=== PATIENT | female | born 2000 | race Caucasian/White ===

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

== ENCOUNTER 2019-02-18 17:09 | Emergency (ER) | payer OTHER ==
[2019-02-18 17:35] VITALS: RESP 16
[2019-02-18] MEDS ORDERED: KETOROLAC 30 MG/ML 1 ML VIAL IM STA (18:35)
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
[2019-02-18 19:29] VITALS: BP 122/75; PULSE 78; TEMP 97.8
== END 2019-02-18 19:31 | disposition home or self-care (01) ==
LOC: EC 17:09
DX: S06.0X0A Concussion without loss of consciousness, initial encounter (principal); W20.8XXA Other cause of strike by thrown, projected or falling object, initial encounter; Y92.69 Other specified industrial and construction area as the place of occurrence of the external cause
CPT/HCPCS: 99283; 96372; J1885

== ENCOUNTER 2019-10-15 17:45 | Emergency (ER) | payer OTHER ==
[2019-10-15 20:01] VITALS: TEMP 99.5
--- NOTE | 2019-10-15 20:07 | ED ---
Chest Pain HPI - General Chief Complaint: Chest Pain Stated Complaint: chest pain Time Seen by Provider: 10/15/19 19:33 Source: patient Mode of arrival: ambulatory Limitations: no limitations - History of Present Illness Initial Comments: Patient is a 19-year-old female with no significant past medical history presenting to emergency Department with a chief complaint of chest pain. Patient states her symptoms began about 2 days ago with gradual increase in severity. Patient reports pain when her chest is palpated and on full inspiration. States that chest pain is located mostly in the sternal region. Patient denies any shortness of breath but does report a productive cough. Chest pain is not alleviated or exacerbated and laying or standing position. Patient has no history of asthma or smoking. Patient has no family history of early cardiac related . Patient denies oral contraceptive use, prolonged periods of activity, Unilateral leg swelling, hemoptysis. She denies taking any medication to alleviate the symptoms. Denies any rhinorrhea, sore throat, headaches, otalgia. Denies night sweats fever or chills. - Related Data Allergies Allergy/AdvReac Type Severity Reaction Status Date / Time No Known Allergies Allergy Verified 02/18/19 18:49 Review of Systems ROS Statement: Those systems with pertinent positive or pertinent negative responses have been documented in the HPI. ROS Other: All systems not noted in ROS Statement are negative. EKG Findings - EKG Comments: EKG Findings:: Normal sinus rhythm, no ST changes or T-wave inversions. Ventricular rate 79, [place] interval 172, QRS , QTC 410. Past Medical History Past Medical History: No Reported History History of Any Multi-Drug Resistant Organisms: None Reported Past Surgical History: No Surgical Hx Reported Past Psychological History: No Psychological Hx Reported Smoking Status: Never smoker Past Alcohol Use History: None Reported Past Drug Use History: None Reported General Exam Limitations: no limitations General appearance: alert, in no apparent distress Head exam: Present: atraumatic, normocephalic, normal inspection Eye exam: Present: normal appearance, PERRL Pupils: Present: normal accommodation ENT exam: Present: normal exam, normal oropharynx, mucous membranes moist Neck exam: Present: normal inspection, full ROM. Absent: lymphadenopathy Respiratory exam: Present: normal lung sounds bilaterally, chest wall tenderness. Absent: respiratory distress, wheezes, rales Cardiovascular Exam: Present: regular rate, normal rhythm, normal heart sounds Extremities exam: Present: normal inspection, full ROM Back exam: Present: normal inspection, full ROM Neurological exam: Present: alert, oriented X3 Psychiatric exam: Present: normal affect, normal mood Skin exam: Present: warm, dry, intact, normal color Course Vital Signs 10/15/19 10/15/19 18:31 19:43 Temperature 98.1 F 99.5 F Pulse Rate 75 76 Respiratory 18 16 Rate Blood Pressure 113/66 123/67 O2 Sat by Pulse 99 97 Oximetry Chest Pain MDM - Differential Diagnosis Pleurisy-Other, Chest Wall Syndrome - MDM Patient is a 19-year-old female with no significant past medical history presents to the emergency department with a chief complaint of chest pain 2 days. This is a reproducible chest pain with palpation to the sternal region. Patient denies any shortness of breath or dyspnea on exertion. States the pain is not exacerbated with exertion, laying or standing position. EKG shows normal sinus rhythm with no ST elevations. Low concern for pericarditis. Vitals are stable. Patient is afebrile. Patient is perc negative. Chest x-ray is unremarkable. I suspect the patient has costal chondritis. She was advised to alternate between Tylenol and Motrin for symptomatically. She was advised to follow with primary care. Strict return parameters were thoroughly discussed with patient was understanding and agreeable. Case discussed with physician. Disposition Clinical Impression: Atypical chest pain, Costochondritis, acute Disposition: HOME SELF-CARE Condition: Stable Instructions (If sedation given, give patient instructions): Costochondritis (ED) Additional Instructions: Alternate between Tylenol and Motrin for pain control. Follow-up primary care. Return to emergency department if symptoms worsen. Is patient prescribed a controlled substance at d/c from ED?: No Referrals: Luisa Gonzales DO [Primary Care Provider] - 1-2 days Time of Disposition: 20:07
--- NOTE | 2019-10-15 20:24 | XR ---
EXAMINATION TYPE: XR chest 2V DATE OF EXAM: 10/15/2019 COMPARISON: 12/08/2017 HISTORY: Chest pain TECHNIQUE: FINDINGS: Heart and mediastinum are normal. Lungs are clear. Diaphragm is normal. Bony thorax appears normal. IMPRESSION: Normal chest. No change.
[2019-10-15 20:40] VITALS: BP 118/69; PULSE 84; RESP 17
== END 2019-10-15 20:40 | disposition home or self-care (01) ==
LOC: EC 17:45
DX: M94.0 Chondrocostal junction syndrome [Tietze] (principal)
CPT/HCPCS: 71046; 93005; 99284

== ENCOUNTER → 2020-06-09 | Outpatient (CLI) | payer OTHER ==
--- NOTE | 2020-06-09 15:58 | US ---
EXAMINATION TYPE: Transabdominal DATE OF EXAM: 06/09/2020 3:48 PM COMPARISON: NONE CLINICAL HISTORY: Z36 Confirm dates. Confirm Dates, pt has no complaints at this time EXAM PERFORMED: Transabdominal (TA) EXAM MEASUREMENTS: GESTATIONAL AGE / DATING Physician Established: Not yet established Dates by LMP: (11 weeks/5 days) EDC: 12/24/2020 Dates by First Scan: No prior Dates by Current Scan for: (11 weeks/6 days) EDC: 12/23/2020 MATERNAL ANATOMY Uterus: 12.4 x 6.3 x 8.8 cm Right Ovary: 3.3 x 2.1 x 2.3 cm Left Ovary: 2.3 x 1.4 x 2.1 cm Post CDS / Adnexa: wnl Presence of free fluid: No Presence of corpus luteal cyst: Right Ovary= 1.9 x 1.6 x 1.5 cm Presence of subchorionic bleed: No GESTATION / SURVEY CRL: 5.0 cm (11 weeks/6 days) MSD: wnl Heart Rate: 163 bpm Rhythm: Normal IUP: Viable IUP Date of LMP: 03/19/2020 Single, viable IUP/ No abnormality visualized at this time IMPRESSION: 1. Single intrauterine gestation estimated at 11 weeks 6 days gestation based on crown-rump length. C ardiac activity measures 163 bpm
== END | disposition home or self-care (01) ==
LOC: RADUSWWP 15:30
PROVIDERS: ATTEND Obstetrics & Gynecology
DX: Z36.9 Encounter for antenatal screening, unspecified (principal); Z3A.11 11 weeks gestation of pregnancy
CPT/HCPCS: 76801

== ENCOUNTER 2020-08-08 10:39 | Emergency (ER) | payer OTHER ==
[2020-08-08 11:02] VITALS: RESP 18
--- NOTE | 2020-08-08 11:20 | ED ---
General Adult HPI - General Chief complaint: GI Bleed Stated complaint: 20wks preg, vomited blood Time Seen by Provider: 08/08/20 11:10 Source: patient Mode of arrival: ambulatory Limitations: no limitations - History of Present Illness Initial comments: 19yo female who is currently 20 week presenting to the Er today for cc of blood in vomit. Pt states that she had her vitamin on an empty stomach this AM she states that 10 minutes after she had vomiting episodes for 2 mintues and the last bit she had some streaks up blood in it. Denies being all blood, denies liver disease, dark stools, denies abdominal pain, vaginal bleeding, urinary symptoms, fevers, URI symptoms or chest pain. Patient appears well nontoxic on arrival in no acute distress. No current nausea, vomiting, no additional episodes per patient. - Related Data Allergies Allergy/AdvReac Type Severity Reaction Status Date / Time No Known Allergies Allergy Verified 08/08/20 11:02 Review of Systems ROS Statement: Those systems with pertinent positive or pertinent negative responses have been documented in the HPI. ROS Other: All systems not noted in ROS Statement are negative. Past Medical History Past Medical History: No Reported History History of Any Multi-Drug Resistant Organisms: None Reported Past Surgical History: No Surgical Hx Reported Past Psychological History: No Psychological Hx Reported Smoking Status: Never smoker Past Alcohol Use History: None Reported Past Drug Use History: None Reported General Exam - General Exam Comments Initial Comments: General: The patient is awake and alert, in no distress, and does not appear acutely ill. Eye: Pupils are equal, round and reactive to light, extra-ocular movements are intact. No nystagmus. There is normal conjunctiva bilaterally. No signs of icterus. Cardiovascular: There is a regular rate and rhythm. No murmur, rub or gallop is appreciated. Respiratory: No crepitus to chest wall palpation. Lungs are clear to auscultation, respirations are non-labored, breath sounds are equal. No wheezes, stridor, rales, or rhonchi. Gastrointestinal: Soft, non-tender abdomen without masses or organomegaly noted. There is no rebound or guarding present. Musculoskeletal: Normal ROM, no tenderness. Strength 5/5. Sensation intact. Pulses equal bilaterally 2+. Neurological: A&O x 3. CN II-XII intact grossly, There are no obvious motor or sensory deficits. Coordination appears grossly intact. Speech is normal. Skin: Skin is warm and dry and no rashes or lesions are noted. Psychiatric: Cooperative, appropriate mood & affect, normal judgment. Limitations: no limitations Course Vital Signs 08/08/20 10:59 Temperature 97.5 F L Pulse Rate 73 Respiratory 18 Rate Blood Pressure 109/70 O2 Sat by Pulse 100 Oximetry Medical Decision Making - Medical Decision Making No additional episodes. pt VS WNL. appears well . abdomen soft. patient UA contaminated otherwise no obvious features. Patient glucose 86. HR 155, she will be discharged with OBGYN f/u. Patient case discussed wtih Dr clifford who is agreeable to a care plan. - Lab Data Lab Results 08/08/20 08/08/20 Range/Units 11:29 11:39 POC Glucose (mg/dL) 86 (75-99) mg/dL POC Glu Dog Walker ID Jeramy, Zoila Urine Color Yellow Urine Appearance Cloudy H (Clear) Urine pH 7.5 (5.0-8.0) Ur Specific [place] 1.013 (1.001-1.035) Urine Protein Negative (Negative) Urine Glucose (UA) Negative (Negative) Urine Ketones Negative (Negative) Urine Blood Negative (Negative) Urine Nitrite Negative (Negative) Urine Bilirubin Negative (Negative) Urine Urobilinogen <2.0 (<2.0) mg/dL Ur Leukocyte Esterase Trace H (Negative) Urine RBC 1 (0-5) /hpf Urine WBC 4 (0-5) /hpf Ur Squamous Epith Cells 23 H (0-4) /hpf Urine Bacteria Rare H (None) /hpf Urine Mucus Occasional H (None) /hpf Disposition Clinical Impression: Vomiting, Symptom of blood in vomit Disposition: HOME SELF-CARE Condition: Good Additional Instructions: Please use medication as discussed. Please follow-up with OBGYN, return for any additional episodes of blood in vomit. Please return to emergency room if the symptoms increase or worsen or for any other concerns. Is patient prescribed a controlled substance at d/c from ED?: No Referrals: Luisa Gonzales DO [Primary Care Provider] - 1-2 days Time of Disposition: 11:19
[2020-08-08 11:40] LABS: Glucose,Whole Blood 86 mg/dL (75-99)
[2020-08-08 11:49] LABS: Appearance,Urine Cloudy (Clear); Bacteria,Urine Rare /hpf; Bilirubin,Urine Negative (Negative); Blood,Urine Negative (Negative); Color,Urine Yellow; Glucose,Urine (UA) Negative (Negative); Ketones,Urine Negative (Negative); Leukocyte Esterase,Urine Trace (Negative); Mucus,Urine Occasional /hpf; Nitrite,Urine Negative (Negative); PH, Urine 7.5 (5.0-8.0); Protein,Urine Negative (Negative); RBC,Urine 1 /hpf (0-5); Specific Gravity,Urine 1.013 (1.001-1.035); Squamous Epithelial Cell,Urine 23 /hpf (0-4); Urobilinogen,Urine <2.0 mg/dL (<2.0); WBC,Urine 4 /hpf (0-5)
[2020-08-08 12:27] VITALS: BP 115/70; PULSE 76; TEMP 98
== END 2020-08-08 12:27 | disposition home or self-care (01) ==
LOC: EC 10:39
DX: O99.512 Diseases of the respiratory system complicating pregnancy, second trimester (principal); R04.2 Hemoptysis; Z3A.20 20 weeks gestation of pregnancy
CPT/HCPCS: 36415; 81001; 99284

== ENCOUNTER 2020-09-15 19:31 | Emergency (ER) | payer OTHER ==
[2020-09-15 21:05] LABS: Appearance,Urine Cloudy (Clear); Bilirubin,Urine Negative (Negative); Blood,Urine Negative (Negative); Color,Urine Yellow; Glucose,Urine (UA) Negative (Negative); Ketones,Urine Negative (Negative); Leukocyte Esterase,Urine Trace (Negative); Mucus,Urine Rare /hpf; Nitrite,Urine Negative (Negative); Protein,Urine Negative (Negative); RBC,Urine 1 /hpf (0-5); Specific Gravity,Urine 1.014 (1.001-1.035); Squamous Epithelial Cell,Urine 8 /hpf (0-4); Urobilinogen,Urine <2.0 mg/dL (<2.0); WBC,Urine 4 /hpf (0-5)
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
[2020-09-15 21:28] VITALS: RESP 18
[2020-09-15 21:35] VITALS: BP 113/67; PULSE 90; TEMP 98
== END 2020-09-15 21:32 | disposition home or self-care (01) ==
LOC: EC 19:31
DX: O9A.212 Injury, poisoning and certain other consequences of external causes complicating pregnancy, second trimester (principal); T14.90XA Injury, unspecified, initial encounter; Z3A.25 25 weeks gestation of pregnancy; Y04.0XXA Assault by unarmed brawl or fight, initial encounter
CPT/HCPCS: 81001; 99284

== ENCOUNTER 2020-11-26 15:01 | Outpatient (CLI) | payer OTHER ==
[2020-11-26 16:23] VITALS: BP 117/61; PULSE 97; RESP 16; TEMP 97.6
--- NOTE | 2020-12-01 06:28 | P.MSEPDOC ---
Presenting Problems - Arrival Data Date of Arrival on Unit: 11/26/20 Time of Arrival on Unit: 15:00 Mode of Transport: Ambulatory - Complaint OB-Reason for Admission/Chief Complaint: Decreased Movement Comment: pt presents presents to triage for concerns of not feeling baby move since 9am. States baby was very active all night. states mild stomache cramping last 30 min or so. was last at Dr Mosher's November 19. "not dialated" at that time Medical History - Information : 1 Para: 0 Term: 0 : 0 Abortions: Spontaneous or Elective: 0 Number of Living Children: 0 - Gestational Age Gestational Age by HUMBERTO (wks/days): 36 Weeks and 0 Days - History Comment: record not available for review but pt denies and history of complications. Review of Systems - Review of Systems Constitutional: No problems Breast: No problems ENT: No problems Cardiovascular: No problems Respiratory: No problems Gastrointestinal: No problems Genitourinary: No problems Musculoskeletal: No problems Neurological: No problems Skin: No problems Vital Signs - Temperature Temperature: 97.6 F Temperature Source: Oral - Pulse Right Pulse Rate: 97 Pulse Assessment Method: Automatic Cuff - Respirations Respiratory Rate: 16 Oxygen Delivery Method: Room Air - Blood Pressure Right Arm Blood Pressure: 117/61 Blood Pressure Mean: 79 Blood Pressure Source: Automatic Cuff Medical Screen Scoring (Pre) - Cervical Exam Dilation: Exam Deferred Effacement: Exam Deferred - Uterine Contractions Frequency: > or = 36 weeks =2 Duration: N/A Intensity: N/A - Maternal Vital Signs Maternal Temperature: N/A Maternal Blood Pressure: N/A Signs of Preeclampsia: N/A Maternal Respirations: N/A - Maternal Trauma Maternal Trauma: N/A - Assessment - Baby A Baseline FHR: 155 Heart Rate - NICHD Category: Category I (Normal) = 0 NST: Reactive Position: N/A Station: N/A - Total Score - Baby A Total Score - Baby A: 2 - Total Score - Baby B Total Score - Baby B: 2 - Total Score - Baby C Total Score - Baby C: 2 - Level of Risk - Baby A Level of Risk - Baby A: Low (0-5) - Level of Risk - Baby B Level of Risk - Baby B: Low (0-5) - Level of Risk - Baby C Level of Risk - Baby C: Low (0-5) - Pain Assessment Pain Scale Used: Numeric (1 - 10) Pain Intensity: 0 Pain Management Goal: 0 Physician Notification (Pre) - Physician Notified Physician Notified Date: 11/26/20 Physician Notified Time: 15:45 New Order Received: Yes - Notification Comment Comment: Notified pts reason for visit decreased movement since 9am. baby actively moving now. NST reactive. Cat 1 FHT. Pt denies pain. Appt with Dr [place] tomorrow. Discharge order received. Disposition - Disposition OB Disposition: Discharge to home Discharge Date: 11/26/20 Discharge Time: 16:00 I agree with the RN Medical Screening Exam: Yes Case reviewed; plan agreed upon as documented in EMR&OBIX.: Yes Diagnosis: DECREASED MOVEMENTS, THIRD TRIMESTER, FETUS 1 (Reactive NST/Cat 1. Pt now feeling baby move. No evidence of maternal/ compromise.)
== END 2020-11-26 16:00 | disposition home or self-care (01) ==
LOC: FBPOP 15:01
PROVIDERS: ATTEND Obstetrics & Gynecology
DX: O36.8130 Decreased fetal movements, third trimester, not applicable or unspecified (principal); Z3A.36 36 weeks gestation of pregnancy
CPT/HCPCS: 59025; G0463; 99213

== ENCOUNTER 2020-12-20 18:36 | Outpatient (CLI) | payer OTHER ==
[2020-12-20 19:42] VITALS: BP 126/69; PULSE 108; RESP 16; TEMP 97.6
--- NOTE | 2021-01-06 02:26 | P.MSEPDOC ---
Presenting Problems - Arrival Data Date of Arrival on Unit: 12/20/20 Time of Arrival on Unit: 18:36 Mode of Transport: Ambulatory - Complaint OB-Reason for Admission/Chief Complaint: Decreased Movement Comment: pt presents to triage for not feeling any movement at all today Medical History - Information : 1 Para: 0 Term: 0 : 0 Abortions: Spontaneous or Elective: 0 Number of Living Children: 0 - Gestational Age Gestational Age by HUMBERTO (wks/days): 39 Weeks and 3 Days Review of Systems - Review of Systems Constitutional: No problems Breast: No problems ENT: No problems Cardiovascular: No problems Respiratory: No problems Gastrointestinal: No problems Genitourinary: No problems Musculoskeletal: No problems Neurological: No problems Skin: No problems Vital Signs - Temperature Temperature: 97.6 F Temperature Source: Temporal Artery Scan - Pulse Right Brachial Pulse Rate: 108 Pulse Assessment Method: Automatic Cuff - Respirations Respiratory Rate: 16 Oxygen Delivery Method: Room Air O2 Sat by Pulse Oximetry: 98 - Blood Pressure Right Arm Blood Pressure: 126/69 Blood Pressure Mean: 88 Blood Pressure Source: Automatic Cuff Medical Screen Scoring (Pre) - Cervical Exam Dilation: Exam Deferred Effacement: Exam Deferred Membranes: Intact - Uterine Contractions Frequency: > 5 minutes apart = 1 Duration: > 40 seconds = 2 Intensity: N/A - Maternal Vital Signs Maternal Temperature: N/A Maternal Blood Pressure: N/A Signs of Preeclampsia: N/A Maternal Respirations: N/A - Maternal Trauma Maternal Trauma: N/A - Assessment - Baby A Baseline FHR: 145 Heart Rate - NICHD Category: Category I (Normal) = 0 NST: Reactive - Total Score - Baby A Total Score - Baby A: 3 - Total Score - Baby B Total Score - Baby B: 3 - Total Score - Baby C Total Score - Baby C: 3 - Level of Risk - Baby A Level of Risk - Baby A: Low (0-5) - Level of Risk - Baby B Level of Risk - Baby B: Low (0-5) - Level of Risk - Baby C Level of Risk - Baby C: Low (0-5) Physician Notification (Pre) - Physician Notified Physician Notified Date: 12/20/20 Physician Notified Time: 19:15 New Order Received: Yes - Notification Comment Comment: RN reported that patient was 39 3/7, , presents to triage with decreased. movement. Reactive NST, patient felt baby move four times during NST. Patients. vital signs remain stable. Catergory 1 heart tones. Patient to be discharged home. with instructions on how to do kick counts. Patient educated and verbalized. understanding. Disposition - Disposition OB Disposition: Discharge to home Discharge Date: 12/20/20 Discharge Time: 19:20 I agree with the RN Medical Screening Exam: Yes Case reviewed; plan agreed upon as documented in EMR&OBIX.: Yes Diagnosis: DECREASED MOVEMENTS, THIRD TRIMESTER, FETUS 1
== END 2020-12-20 19:20 | disposition home or self-care (01) ==
LOC: FBPOP 18:36
PROVIDERS: ATTEND Obstetrics & Gynecology
DX: O36.8130 Decreased fetal movements, third trimester, not applicable or unspecified (principal); Z3A.39 39 weeks gestation of pregnancy
CPT/HCPCS: 59025; G0463; 99213

== ENCOUNTER 2020-12-25 16:11 | Outpatient (CLI) | payer OTHER ==
[2020-12-25 16:53] VITALS: BP 125/69; PULSE 94; RESP 18; TEMP 97.9
--- NOTE | 2020-12-26 08:31 | P.MSEPDOC ---
Presenting Problems - Arrival Data Date of Arrival on Unit: 12/25/20 Time of Arrival on Unit: 16:10 Mode of Transport: Ambulatory - Complaint OB-Reason for Admission/Chief Complaint: Rule Out SROM Comment: ? SROM at 1800 last night. Medical History - Information : 1 Para: 0 Term: 0 : 0 Abortions: Spontaneous or Elective: 0 Number of Living Children: 0 - Gestational Age Gestational Age by HUMBERTO (wks/days): 40 Weeks and 1 Days - History Comment: Post dates Review of Systems - Review of Systems Constitutional: No problems Breast: No problems ENT: No problems Cardiovascular: No problems Respiratory: No problems Gastrointestinal: No problems Genitourinary: No problems Musculoskeletal: No problems Neurological: No problems Skin: No problems Vital Signs - Temperature Temperature: 97.9 F Temperature Source: Oral - Pulse Right Sitting Brachial Pulse Rate: 94 Pulse Assessment Method: Automatic Cuff - Respirations Respiratory Rate: 18 Oxygen Delivery Method: Room Air O2 Sat by Pulse Oximetry: 97 - Blood Pressure Right Arm Sitting Blood Pressure: 125/69 Blood Pressure Mean: 87 Blood Pressure Source: Automatic Cuff Medical Screen Scoring (Pre) - Cervical Exam Dilation: 1-3 cm = 1 Effacement: More than 50% = 2 Membranes: Intact - Uterine Contractions Frequency: > 5 minutes apart = 1 Duration: > 40 seconds = 2 Intensity: N/A - Maternal Vital Signs Maternal Temperature: N/A Maternal Blood Pressure: N/A Signs of Preeclampsia: N/A Maternal Respirations: N/A - Maternal Trauma Maternal Trauma: N/A - Assessment - Baby A Baseline FHR: 135 Heart Rate - NICHD Category: Category I (Normal) = 0 NST: Reactive Position: N/A - Total Score - Baby A Total Score - Baby A: 6 - Total Score - Baby B Total Score - Baby B: 6 - Total Score - Baby C Total Score - Baby C: 6 - Level of Risk - Baby A Level of Risk - Baby A: Medium (6-9) - Level of Risk - Baby B Level of Risk - Baby B: Medium (6-9) - Level of Risk - Baby C Level of Risk - Baby C: Medium (6-9) Physician Notification (Pre) - Physician Notified Physician Notified Date: 12/25/20 Physician Notified Time: 16:45 New Order Received: Yes - Notification Comment Comment: Mt home. Pt to call for OB appt and NST on Monday. Pt verbalized understanding. Disposition - Disposition OB Disposition: Discharge to home Discharge Date: 12/25/20 Discharge Time: 16:50 I agree with the RN Medical Screening Exam: Yes Case reviewed; plan agreed upon as documented in EMR&OBIX.: Yes Diagnosis: FALSE LABOR AT OR AFTER 37 COMPLETED WEEKS OF GESTATION (Patient presented to labor and delivery with complaints of leaking for over 1 day. Examination showed no evidence of rupture membranes and cervix was nondilated significantly without regular contractions. heart tones are category 1. Patient instructed follow-up with Dr. Mosher on Monday for a nonstress test an obstetrical visit to discuss delivery plans if undelivered.)
== END 2020-12-25 16:54 | disposition home or self-care (01) ==
LOC: FBPOP 16:11
PROVIDERS: ATTEND Obstetrics & Gynecology
DX: O47.1 False labor at or after 37 completed weeks of gestation (principal); Z3A.40 40 weeks gestation of pregnancy
CPT/HCPCS: 59025; 84112; G0463; 99213

== ENCOUNTER 2020-12-30 05:50 | Inpatient (IN) | payer OTHER ==
[2020-12-30] MEDS ORDERED: LIDOCAINE 1% (10MG/ML) FOR IV START INTRADERMA PRN (06:03)
[2020-12-30] MEDS ORDERED: CARBOPROST TROMETHAMINE 250 MCG/ML 1 ML AMP IM PRN (06:04)
[2020-12-30] MEDS ORDERED: OXYTOCIN 10 UNIT/ML 1 ML VIAL IM PRN (06:04)
[2020-12-30] MEDS ORDERED: METHYLERGONOVINE 0.2 MG/ML 1 ML AMP IM PRN (06:04)
[2020-12-30] MEDS ORDERED: TERBUTALINE 1 MG/ML VIAL SQ PRN (06:04)
[2020-12-30] MEDS ORDERED: AMPICILLIN 2,000 MG in SODIUM CHLORIDE 0.9% 100 ML IVPB STA (06:04)
[2020-12-30] MEDS ORDERED: OXYTOCIN 30 UNITS/500 ML NS 30 UNIT in SALINE 1 500ML.BAG IV SCH (06:15)
[2020-12-30] MEDS: LACTATED RINGERS 1,000 ML IV SCH ×5 (06:15→21:12)
[2020-12-30 06:21] LABS: Basophils % (A) 0 %; Eosinophils # (A) 0.2 k/uL (0-0.7); Eosinophils % (A) 2 %; HGB 12.1 gm/dL (11.4-16.0); Lymphocytes # (A) 2.1 k/uL (1.0-4.8); Lymphocytes % (A) 21 %; MCH 27.6 pg (25.0-35.0); MCHC 35.7 g/dL (31.0-37.0); MCV 77.3 fL (80.0-100.0); Mean Platelet Volume 9.3; Monocytes # (A) 0.4 k/uL (0-1.0); Monocytes % (A) 4 %; Neutrophils # (A) 7.4 k/uL (1.3-7.7); Neutrophils % (A) 72 %; Platelet Count 262 k/uL (150-450); RDW 13.8 % (11.5-15.5); WBC 10.3 k/uL (3.8-10.6)
--- NOTE | 2020-12-30 08:04 | P.HPOB ---
History of Present Illness H&P Date: 12/30/20 Chief Complaint: Induction of Labor 20 year old presented at 40 weeks and 6 days for induction of labor. Her cervix is 1-2 cm dilated, 70% effaced, and -2 station. She is león irregularly. heart tones are 135 with moderate variability and reactive. Review of Systems All systems: negative Constitutional: Denies chills, Denies fever Eyes: denies blurred vision, denies pain Ears, nose, mouth and throat: Denies headache, Denies sore throat Cardiovascular: Denies chest pain, Denies shortness of breath Respiratory: Denies cough Gastrointestinal: Denies abdominal pain, Denies diarrhea, Denies nausea, Denies vomiting Genitourinary: Denies dysuria, Denies hematuria Musculoskeletal: Denies myalgias Integumentary: Denies pruritus, Denies rash Neurological: Denies numbness, Denies weakness Psychiatric: Denies anxiety, Denies depression Endocrine: Denies fatigue, Denies weight change Past Medical History Past Medical History: No Reported History History of Any Multi-Drug Resistant Organisms: None Reported Past Surgical History: No Surgical Hx Reported Past Anesthesia/Blood Transfusion Reactions: No Reported Reaction Past Psychological History: No Psychological Hx Reported Smoking Status: Never smoker Past Alcohol Use History: None Reported Past Drug Use History: None Reported - Past Family History Mother History Unknown: Yes Family Medical History: Hypertension Medications and Allergies Home Medications Medication Instructions Recorded Confirmed Type Pnv No.95/Ferrous Fum/Folic AC 1 tab PO DAILY 12/20/20 12/30/20 History [ Multivitamin Tablet] Allergies Allergy/AdvReac Type Severity Reaction Status Date / Time No Known Allergies Allergy Verified 12/20/20 18:48 Exam Osteopathic Statement: *. No significant issues noted on an osteopathic structural exam other than those noted in the History and Physical/Consult. Vital Signs Temp Pulse Resp BP Pulse Ox 12/30/20 06:02 96.7 F L 83 16 128/75 98 Intake and Output 12/29/20 12/30/20 12/30/20 22:59 06:59 14:59 Other: Weight 102.512 kg Heart: Regular rate and rhythm Lungs: Clear to auscultation bilaterally Abdomen: Soft, nontender Extremities: Negative Homans sign Results Result Diagrams: 12/30/20 06:05 Abnormal Lab Results - Last 24 Hours (Table) 12/30/20 Range/Units 06:05 MCV 77.3 L (80.0-100.0) fL Assessment and Plan (1) Encounter for induction of labor Current Visit: Yes Status: Acute Code(s): Z34.90 - ENCNTR FOR SUPRVSN OF NORMAL , UNSP, UNSP TRIMESTER SNOMED Code(s): 137953345 (2) Positive GBS test Current Visit: Yes Status: Acute Code(s): B95.1 - STREPTOCOCCUS, GROUP B, CAUSING DISEASES CLASSD [facility] SNOMED Code(s): 240392766 Plan: 1. Admit to family place 2. Ampicillin for GBS prophylaxis 3. Amniotomy and Pitocin for induction of labor 4. Anticipate normal vaginal delivery
[2020-12-30] MEDS: AMPICILLIN 1,000 MG in SODIUM CHLORIDE 0.9% 50 ML IVPB SCH ×4 (10:20→22:14)
[2020-12-30] MEDS: BUTORPHANOL 1 MG/ML 1 ML VIAL IV PRN ×3 (12:17→18:15)
[2020-12-30] MEDS ORDERED: ROPIVACAINE 5MG/ML 20ML VIAL ONE (20:17)
[2020-12-30] MEDS ORDERED: SODIUM CHLORIDE 0.9% 100 ML BAG ONE (20:17)
[2020-12-30] MEDS ORDERED: fentaNYL (PF) 50 MCG/ML 5 ML AMP ONE (20:17)
[2020-12-31] MEDS: AMPICILLIN 1,000 MG in SODIUM CHLORIDE 0.9% 50 ML IVPB SCH (02:13)
[2020-12-31] MEDS ORDERED: CITRIC ACID-SODIUM CITRATE 15 ML CUP PO ONE (03:48)
[2020-12-31] MEDS ORDERED: NALBUPHINE 10 MG/ML (1 ML AMP) ONE (04:14)
[2020-12-31] MEDS ORDERED: OXYTOCIN 10 UNIT/ML 1 ML VIAL ONE (04:14)
[2020-12-31] MEDS ORDERED: MORPHINE SULFATE (PF) 0.3 MG/0.3 ML SYR ONE (04:14)
[2020-12-31] MEDS ORDERED: LANOLIN CREAM 5 GM TUBE TOPICAL PRN (05:07)
[2020-12-31] MEDS ORDERED: METOCLOPRAMIDE 5 MG/ML 2 ML VIAL IVP PRN (05:07)
[2020-12-31] MEDS ORDERED: ZOLPIDEM 5 MG TAB PO PRN (05:07)
[2020-12-31] MEDS ORDERED: diphenhydrAMINE 50 MG/ML 1 ML VIAL IVP PRN ×2 (05:07)
[2020-12-31] MEDS ORDERED: SIMETHICONE 80 MG CHEWABLE PO PRN (05:07)
[2020-12-31] MEDS ORDERED: ONDANSETRON 4 MG/2 ML VIAL IVP PRN (05:07)
[2020-12-31] MEDS ORDERED: NALOXONE 0.4 MG/ML 1 ML VIAL IV PRN (05:07)
[2020-12-31] MEDS ORDERED: diphenhydrAMINE 25 MG CAP PO PRN (05:07)
[2020-12-31] MEDS ORDERED: diphenhydrAMINE 50 MG CAP PO PRN (05:07)
--- NOTE | 2020-12-31 05:12 | P.OP ---
Date of Procedure: 12/31/20 Preoperative Diagnosis: 1. at 41 weeks 2. failure to progress Postoperative Diagnosis: 1. at 41 weeks 2. failure to progress Procedure(s) Performed: Primary low transverse Anesthesia: epidural Surgeon: Jessica Mosher [employer] Supervisor #1: Viktoria Wood Estimated Blood Loss (ml): 600 IV fluids (ml): 200 Urine output (ml): 200 Pathology: none sent Condition: stable Disposition: floor Indications for Procedure: Patient presented for induction of labor at 40 weeks and 6 days. Her cervix was 1-2 cm dilated, 70% effaced, and -2 station. She was león irregularly. heart tones 135 with moderate variability and reactive. Pitocin was started and amniotomy was performed patient did make it to 3 cm but stayed there for several hours despite adequate contractions. Informed consent was obtained and section was called. Operative Findings: Viable female, Apgars 9, 9, weight 9 lbs. 9 oz. Normal Uterus, tubes, and ovaries. Description of Procedure: Patient was taken to the operating room where epidural anesthesia was found be adequate. She was prepped and draped in normal sterile fashion in dorsal supine position with a leftward tilt. Pfannenstiel skin incision was made the scalpel and carried through to the underlying layer of fascia with the scalpel. Fascia was incised in midline and carried bilaterally with the Hussein scissors. The superior aspect of the fascial incision was grasped with Alvin clamps elevated and the underlying rectus muscles dissected off with the Hussein's. Attention was then turned to inferior aspect of same incision which in a similar fashion was grasped tented up and the underlying rectus muscles dissected off with the Hussein's. The rectus muscles were the midline and the peritoneum was identified tented up and entered sharply with the scalpel. The incision was extended superiorly and inferiorly with good visualization of the bladder. The bladder blade was inserted and the vesicouterine peritoneum was incised the Metzenbaums then carried bilaterally and bladder flap created digitally. A low transverse incision was then made on the uterus with the scalpel. This was carried bilaterally and digital manner. Infant's head delivered atraumatically, nose and mouth bulb suctioned, cord clamped and cut, handed off to waiting nurses. Apgars 9,9, weight 9 lbs. 9 oz. Placenta delivered manually, intact with three-vessel cord. The uterus is exteriorized and cleared of all clots and debris. The uterine incision was closed with 0 Vicryl in a running locked fashion. Second layer of the same sutures used in imbricating fashion to obtain excellent hemostasis. The fascia was reapproximated using 0 Vicryl in a running fashion. The subcutaneous tissues closed with 3-0 Vicryl running fashion. The skin was closed reginaldo. Patient tolerated the procedure well, sponge and instrument counts were correct times 2 and she was taken to the recovery room in stable condition.
[2020-12-31] MEDS ORDERED: OXYTOCIN 30 UNITS/500 ML NS 30 UNIT in SALINE 1 500ML.BAG IV SCH (05:15)
[2020-12-31] MEDS: KETOROLAC 15 MG/ML 1 ML VIAL IVP SCH ×3 (06:15→17:53)
--- NOTE | 2020-12-31 06:35 | P.PN ---
Progress Note - Text Progress Note Date: 12/31/20 Patient w/o complaints. Ambulating w/o paresthesia or weakness. Denies headache or pruritis. Pain controlled. Spinal site c/d. A/P POD#1 s/p c-sec with spinal duramorph - doing well
[2020-12-31] MEDS: ACETAMINOPHEN TAB 500 MG TAB PO SCH ×3 (09:08→21:29)
[2020-12-31] MEDS: SENNOSIDES-DOCUSATE SODIUM 1 EACH TAB PO SCH ×2 (09:08→19:38)
[2020-12-31] MEDS: LACTATED RINGERS 1,000 ML IV SCH ×3 (09:51→18:52)
[2020-12-31] MEDS: IBUPROFEN 600 MG TAB PO SCH (18:50)
[2021-01-01] MEDS: IBUPROFEN 600 MG TAB PO SCH ×3 (05:23→22:33)
[2021-01-01] MEDS ORDERED: diphenhydrAMINE 25 MG CAP PO PRN (08:03)
[2021-01-01] MEDS ORDERED: METOCLOPRAMIDE 5 MG/ML 2 ML VIAL IVP PRN (08:03)
[2021-01-01] MEDS ORDERED: ZOLPIDEM 5 MG TAB PO PRN (08:03)
[2021-01-01] MEDS ORDERED: ONDANSETRON 4 MG/2 ML VIAL IVP PRN (08:03)
[2021-01-01] MEDS ORDERED: diphenhydrAMINE 50 MG/ML 1 ML VIAL IVP PRN ×2 (08:03)
[2021-01-01] MEDS ORDERED: SIMETHICONE 80 MG CHEWABLE PO PRN (08:03)
[2021-01-01] MEDS ORDERED: NALOXONE 0.4 MG/ML 1 ML VIAL IV PRN (08:03)
[2021-01-01] MEDS ORDERED: diphenhydrAMINE 50 MG CAP PO PRN (08:03)
[2021-01-01] MEDS: SENNOSIDES-DOCUSATE SODIUM 1 EACH TAB PO SCH ×2 (09:25→19:13)
--- NOTE | 2021-01-01 09:53 | P.PN ---
Progress Note - Text Progress Note Date: 01/01/21 Postoperative day 1 status post section under epidural anesthesia, and epidural morphine given for postoperative analgesia, patient doing well, there is no anesthesia related complications, Patient had no headache, vital signs stable , Assessment and plan= postop day 1 status post , doing well there is no anesthesia related complication.
[2021-01-01] MEDS ORDERED: ACETAMINOPHEN TAB 500 MG TAB PO SCH (10:00)
[2021-01-01 10:18] LABS: Basophils % (A) 0 %; Eosinophils # (A) 0.1 k/uL (0-0.7); Eosinophils % (A) 1 %; HCT 25.5 % (34.0-46.0); Lymphocytes # (A) 1.5 k/uL (1.0-4.8); Lymphocytes % (A) 13 %; MCH 27.4 pg (25.0-35.0); MCHC 34.7 g/dL (31.0-37.0); Mean Platelet Volume 9.3; Monocytes # (A) 0.4 k/uL (0-1.0); Monocytes % (A) 3 %; Neutrophils # (A) 9.3 k/uL (1.3-7.7); Neutrophils % (A) 81 %; Platelet Count 222 k/uL (150-450); RBC 3.23 m/uL (3.80-5.40); RDW 14.2 % (11.5-15.5); WBC 11.4 k/uL (3.8-10.6)
[2021-01-01 10:19] LABS: HGB 8.9 gm/dL (11.4-16.0)
[2021-01-01] MEDS ORDERED: IBUPROFEN 600 MG TAB PO SCH (13:00)
[2021-01-01] MEDS: ACETAMINOPHEN TAB 500 MG TAB PO SCH (20:01)
[2021-01-02] MEDS: ACETAMINOPHEN TAB 500 MG TAB PO SCH ×3 (02:34→15:10)
[2021-01-02] MEDS: IBUPROFEN 600 MG TAB PO SCH ×2 (03:49→10:37)
--- NOTE | 2021-01-02 07:06 | P.PNOBGPC ---
Subjective - Subjective Principal diagnosis: Status post primary low transverse postop day #1 Interval history: Patient seen and examined. Denies nausea, vomiting, chest pain, shortness of breath or any calf pain. Patient reports: Reports appetite normal, Reports voiding normally, Reports pain well controlled, Reports ambulating normally : doing well Objective - Vital Signs Latest vital signs: Vital Signs Temp Pulse Resp BP 01/02/21 03:58 97.6 F 88 16 122/70 01/02/21 00:00 96.2 F L 77 16 118/74 01/01/21 20:00 97.1 F L 77 16 132/79 01/01/21 15:47 98.1 F 78 16 121/87 01/01/21 11:43 98 F 84 16 109/67 01/01/21 07:39 98 F 87 16 118/67 Intake and Output 01/01/21 01/02/21 01/02/21 22:59 06:59 14:59 Other: # Voids 1 # Bowel Movements 0 - Exam Lungs: bilateral: normal Chest: Normal S1, Normal S2 Extremities: Present: normal Abdomen: Present: normal appearance, soft. Absent: distention, tenderness Incision: Present: normal, dry, intact Uterus: Present: normal, firm - Labs Labs: Abnormal Lab Results - Last 24 Hours (Table) 01/01/21 Range/Units 08:59 WBC 11.4 H (3.8-10.6) k/uL RBC 3.23 L (3.80-5.40) m/uL Hgb 8.9 L D (11.4-16.0) gm/dL Hct 25.5 L (34.0-46.0) % MCV 79.0 L (80.0-100.0) fL Neutrophils # 9.3 H (1.3-7.7) k/uL Assessment and Plan (1) Encounter for induction of labor Current Visit: Yes Status: Resolved Code(s): Z34.90 - ENCNTR FOR SUPRVSN OF NORMAL , UNSP, UNSP TRIMESTER SNOMED Code(s): 566464165 (2) Positive GBS test Current Visit: Yes Status: Resolved Code(s): B95.1 - STREPTOCOCCUS, GROUP B, [facility] Code(s): 041911689 (3) Status post primary low transverse section Current Visit: Yes Status: Acute Code(s): Z98.891 - HISTORY OF UTERINE SCAR FROM PREVIOUS SURGERY SNOMED Code(s): 116838304 Plan: 1. Increase ambulation 2. Regular diet
--- NOTE | 2021-01-02 07:08 | P.DS ---
Providers Date of admission: 12/30/20 05:50 Expected date of discharge: 01/02/21 Attending physician: Jessica Mosher Primary care physician: Stated None - Discharge Diagnosis(es) (1) Encounter for induction of labor Current Visit: Yes Status: Resolved (2) Positive GBS test Current Visit: Yes Status: Resolved (3) Status post primary low transverse section Current Visit: Yes Status: Acute Hospital Course: Patient presented for induction of labor. She underwent a primary low transverse for failure to progress. Her postoperative course uncomplicated. She denies nausea, vomiting, chest pain, shortness of breath or any calf pain. She'll be discharged home postoperative day #2 in stable condition to follow-up with me in one week. Plan - Discharge Summary New Discharge Prescriptions: New Ibuprofen [Motrin] 600 mg PO Q6H #40 tab No Action Pnv No.95/Ferrous Fum/Folic AC [ Multivitamin Tablet] 1 tab PO DAILY Discharge Medication List Pnv No.95/Ferrous Fum/Folic AC [ Multivitamin Tablet] 1 tab PO DAILY 12/20/20 [History] Ibuprofen [Motrin] 600 mg PO Q6H #40 tab 01/02/21 [Rx] Follow up Appointment(s)/Referral(s): Jessica Mosher DO [Doctor of Osteopathic Medicine] - 1 Week Discharge Disposition: HOME SELF-CARE
[2021-01-02 09:14] VITALS: BP 132/67; PULSE 80; RESP 18; TEMP 97.9
[2021-01-02] MEDS: SENNOSIDES-DOCUSATE SODIUM 1 EACH TAB PO SCH (09:15)
== END 2021-01-02 16:00 | disposition home or self-care (01) | DRG 788 ==
LOC: 4FBP 05:50
PROVIDERS: ADMIT Obstetrics & Gynecology; ATTEND Obstetrics & Gynecology
PROC: 10D00Z1 Extraction of Products of Conception, Low, Open Approach (ICD-10-PCS; principal; 2020-12-31 03:46)
DX: O62.2 Other uterine inertia (principal); O48.0 Post-term pregnancy; O99.824 Streptococcus B carrier state complicating childbirth; Z37.0 Single live birth; Z3A.40 40 weeks gestation of pregnancy; Z82.49 Family history of ischemic heart disease and other diseases of the circulatory system
CPT/HCPCS: 85025; 86850; 86900; 86901